=== PATIENT | male | born 2005 | race Caucasian/White ===

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

== ENCOUNTER → 2025-03-08 | Outpatient (CLI) | payer OTHER, SELFPAY ==
--- OUTSIDE RECORDS SUMMARY | 2025-03-08 21:22 | XMS RPT_ITS | CCD ---
Author Organization [facility] ion [facility] Care Team Providers Care Pipe Assembly Worker Name Role Phone Eduardo Kevin Referring Unavailable Eduardo Kevin Attending Unavailable Care Physician, No Primary Primary Care Unava ilable Problems Problem Classification Problem Date Documented Da te Episodic/Chronic Other inflammatory condition of skin (1 source) Psoriasis vulgaris; Translations: [Psoriasis vulgaris] Onset: 03-22-2024 Chronic Results Test Name Value Interpretation Reference Range Facility Quantiferon TB-Gold+on 02-28 QFT MITOGEN NATALIE > 10.00 Normal . [facility] Comment on above: Performed By: #### L 3400.8000 #### [facility] [address] [place], [place], [id number] (693) QFT NIL VALUE 0 IU/mL Normal . [facility] Comment on above: Performed By: #### L 3400.8000 #### [facility] [address] [place], [place], [id number] QFT TB GOLD+ Comment Normal . [facility] Comment on above: Result Comment: [place] tiFERON-TB Gold Plus is a qualitative indirect test for M tuberculosis infection (including disease) and is intended for use in conjunction with risk assessment, radiography, and other medical and diagnostic evaluations. The QuantiFERON-TB Gold Plus result is determined by subtracting the Nil value from either TB antigen (Ag) value. The Mitogen tube serves as a control for the test. Performed By: #### L 3400.8000 #### [facility] [address] [place], [place], [id number] QFT TB POS CRIT Negative Normal Negative [facility] Comment on above: Result Comment: No r esponse to M tuberculosis antigens detected. Infection with M tuberculosis is unlikely, but high risk individuals should be considered for additional testing (ATS/IDSA/CDC Clinical Practice Guidelines, 2017). The reference range is an Antigen minus Nil result of <0.35 IU/mL. The specimen received for QuantiFERON testing was incubated by the ordering institution. Specific procedures outlined in our Directory of Services and in the package insert for the QuantiFERON Gold (In Tube) test must be followed to enable for proper stimulation of cells for the production of interferon gamma. Chemiluminescence immunoassay methodology Performed at: [facility] [id number] Boilerhouse Mechanic: Joselito Chacon PhD, Phone: [phone] Performed By: #### L 3400.8000 #### [facility] [address] [facility] [place], [place], [id number] QFT TB1+ AG NATALIE 0.01 IU/mL Normal . [facility] Comment on above: Performed By: #### L 3400.8000 #### [facility] [address] [place], [address] QFT TB2+ AG NATALIE 0.01 IU/mL Normal . [facility] Comment on above: Performed By: #### L 3400.8000 #### [facility] [address] [facility] [place], [place], [id number] Qualitative QuantiFERON-TB g old in tube testOrdered By: Dr. Kevin on 11-16-2022 M. tuberculosis tuberculin stim IFN-g Ql (Bld) 0 IU/mL . [facility] Thin prep Papanicolaou smear with manual screeningOrdered By: Dr. Kevin on 11-16-2022 Thin prep Papanicolaou smear with manual screening Comment . [facility] Comment on above: QuantiFERON-TB Gold Plus is a qualitative indirect test forM tuberculosis infection (including disease) and isintended for use in conjunction with risk assessment,radiography, and other medical and diagnostic evaluations.The QuantiFERON-TB Gold Plus result is determined bysubtracting the Nil value from either TB antigen (Ag)value. The Mitogen tube serves as a control for the test. Thin prep Papanicolaou smear with manual screening 0 IU/mL . [facility] Thin prep Papanicolaou smear with manual screening > 10.00 IU/mL . [facility] Thin prep Papanicolaou smear with manual screening Negative Negative [facility] Comment on above: No response to M tub erculosis antigens detected.Infection with M tuberculosis is unlikely, but high riskindividuals should be considered for additional testing(ATS/IDSA/CDC Clinical Practice Guidelines, 2017). Thereference range is an Antigen minus Nil result of <0.35IU/mL.The specimen received for QuantiFERON testing was incubatedby the ordering institution. Specific procedures outlinedin our Directory of Services and in the package insert forthe QuantiFERON Gold (In Tube) test must be followed toenable for proper stimulation of cells for the productionof interferon gamma. Chemiluminescence immunoassaymethodologyPerformed at: [facility] [id number] Director: Joselito Chacon PhD, Phone: [phone] Progress Noteon 07-24-2019 Geropsychologist Authentication Interface Message Text Patient ID: Ricci Perez is a 14 y.o. male. His chief complaint(s) include: ED Follow Up Assessment 1. Shoulder strain, left, sequela Plan Ricci was seen today for ed follow up. Diagnoses and all orders for this visit: Shoulder strain, left, sequela - PT Evaluate and Treat; Future No follow-ups on file. Discussed using PT to treat pain and decreased ROM. Discussed anti-inflam Subjective HPI Comments: Was wrestling and bent back. Had a lot of pain initially. Now not hurting much. Not injured before. In ER xray was negative. Hurts with rotation outward. He is accompanied by his mother. ED Follow Up The course is improving. The patient was discharged 2 days ago. The patient was treated at [facility] Diagnosis: shoulder sprain. I have reviewed the discharge summary. Primary Care Review of Systems Objective Vital Signs 07/24/19 1525 Temp: 36.7 C (98 F) TempSrc: Temporal Weight: 56.7 kg There is no height or weight on file to calculate BMI. Physical Exam Constitutional: He appears well. He is active. No distress. HENT: Head: Atraumatic. Right Ear: Tympanic membrane normal. Left Ear: Tympanic membrane normal. Mouth/Throat: Mucous membranes are moist. Eyes: Conjunctivae are normal. Cardiovascular: Normal rate and regular rhythm. Heart murmur not heard. Pulmonary/Chest: Breath sounds normal. There is normal air entry. Musculoskeletal: Left shoulder: He exhibits decreased range of motion and tenderness (along ends of bicep and triceps. no joint pain. deltoid not hurting.). He exhibits no effusion and no crepitus. Arms: Neurological: He is alert. Vitals reviewed: Temperature 36.7 C (98 F), temperature source Temporal, weight 56.7 kg. Normal [facility] XR SHOULDER MINIMUM 2 VIEWS LEFTon 07-22-2019 XR SHOULDER MINIMUM 2 VIEWS LEFT ORIGINAL XR SHOULDER MINIMUM 2 VIEWS LEFT CLINICAL STATEMENT: pain. COMPARISON: None FINDINGS: There are several tiny osseous densities identified at the acromion process. There does not appear to be adjacent soft tissue swelling and this is compatible with apophyseal irregularity. The growth plates are otherwise unremarkable. There is no fracture or dislocation seen. IMPRESSION: No acute finding. Interpreted By: Ronald Jackson MD Preliminary Report By: Ronald Jackson MD Electronically Signed By: Ronald Jackson MD Dictated Date: 07/22/2019 12:29:22 PM Prelim Date: 07/22/2019 12:29:22 PM Sign Date: 07/22/2019 12:30:00 PM Ordering Provider:Sukhjinder Wen [facility] ([place]) Progress Noteon 06-23-2019 Geropsychologist Authentication Interface Message Text Patient ID: Ricci Perez is a 14 y.o. male. His chief complaint(s) include: 14 YEAR WELL CHILD (sports form, ring worm) Assessment 1. Encounter for routine child health examination without abnormal findings 2. Exercise counseling 3. Encounter for dietary counseling and surveillance 4. Need for vaccination 5. Psoriasis 6. Tinea corporis Plan Ricci was seen today for 14 year well child. Diagnoses and all orders for this visit: Encounter for routine child health examination without abnormal findings - Behavioral/Emotional Assessment w Score - PHQ-9 Exercise counseling Encounter for dietary counseling and surveillance Need for vaccination - HPV (Gardasil 9) Psoriasis Tinea corporis Return in about 1 year (around 06/23/2020) for well check. Form filled out for sports and wrestling. Subjective HPI Comments: Injections helping with psoriasis He is accompanied by his stepfather. 14 YEAR WELL CHILD Home: Ricci eats meals with family, has an adult to turn to for help and is permitted and able to make independent decisions. Education: Ricci is in 8th grade and earns A's, earns B's & C's, is doing well and is doing well with homework. Eating: Ricci eats regular meals including fruits and vegetables, eats breakfast, limits fast food, drinks non-sweetened liquids and has a calcium source. Activities & Sports: Ricci has friends, plays team sports (wrestling) and participates in music programs (band). Drugs: Ricci does not use tobacco, does not use drugs, does not use alcohol and does not vape. Safety: Ricci has a violence free home, has peer relationships free from violence and uses seat belt. Sex: The patient has never had a sexual partner. The patient has never had sex. Suicidality: Ricci has no depression, has no anxiety, has no suicidal ideation and has no homicidal ideation. Output Urine and Stool Pattern: Urine and Stool Pattern: Normal stool pattern, normal urine pattern. Stool Consistency: soft Sleep Sleeping Difficulty: no difficulty sleeping Hours of sleep at a time: 9 Teen Anticipatory Guidance The following anticipatory guidance was reviewed during the visit: Nutrition: limit junk food/fast food and soft drinks. Safety: home safety. Social: avoid or limit screen time and bullying. Health: age appropriate dental care, elevated noise and hearing, avoid situations where drugs and alcohol are present, how to resist peer pressure to smoke, drink, use drugs, learn how to say 'no' to sex, identify adult who can give accurate information about sex, talk with trusted adult if feeling sad or nervous, learn about self and strengths and limit sun exposure/use sunscreen. Screenings Previous Vaccine Reactions: No. Life events information was reviewed-no referral needed Hearing Vision Concerns: The caregiver has no concerns about the patient's hearing. The caregiver has no concerns about the patient's vision. Primary Care Review of Systems Objective Vital Signs 06/23/19 1138 BP: 131/63 Pulse: 77 Weight: 55.1 kg Height: 159.2 cm Body mass index is 21.74 kg/m . Physical Exam Constitutional: He appears well. He is active. No distress. HENT: Head: Atraumatic. Right Ear: Tympanic membrane and external ear normal. Left Ear: Tympanic membrane and external ear normal. Nose: Nose normal. Mouth/Throat: Mucous membranes are moist. Dentition is normal. Oropharynx is clear. Eyes: Conjunctivae and EOM are normal. No strabismus. Pupils are equal, round, and reactive to light. Neck: Normal range of motion. Neck supple. Thyroid normal. No neck adenopathy. Cardiovascular: Normal rate, regular rhythm, S1 normal and S2 normal. Pulses are palpable. Heart murmur not heard. Pulmonary/Chest: Breath sounds normal. No respiratory distress. Exhibits no deformity. Abdominal: Soft. Bowel sounds are normal. He exhibits no distension and no mass. There is no hepatosplenomegaly. There is no tenderness. Genitourinary: Testes and penis normal. No inguinal hernia noted. Musculoskeletal: Normal range of motion. Back: He exhibits no scoliosis. Neurological: He is alert. He has normal strength. He exhibits normal muscle tone. Gait normal. Skin: Rash noted. Rash is scaling (almost healed ringworm on 3RD finger L hand and inside L wrist. ). There is no pallor. Skin is warm. Vitals reviewed: Blood pressure 131/63, pulse 77, height 159.2 cm, weight 55.1 kg. Ricci Perez is a 14 y.o. male patient. Behavioral/Emotional Assessment w Score - PHQ-9 Performed by: Cassia Gardner MD Authorized by: Cassia Gardner MD PHQ-9 See PHQ9 Flowsheet Feeling down, depressed, irritable or hopeless: Not at all Little interest or pleasure in doing things: Several days Trouble falling or staying sleep, or sleeping too much: Not at all Poor appetite, weight loss, or overeating: Not at all Feeling tired or having little energy: Several days Feeling bad about yourself - or feeling that you are a failure, or have let yourself or your family down: Not at all Trouble concentrating on things, like school work, reading or watching TV: Several days Moving or speaking so slowly that other people could have noticed. Or the opposite - being so fidgety or restless that you were moving around a lot more than usual: Not at all Thoughts that you would be better off , or of hurting yourself in some way: Not at all In the past year have you felt depressed or sad most days, even if you felt OK sometimes?: No If you are experiencing any of the problems on this form, how difficult have these problems made it for you to do your work, take care of things at home or get along with other people?: Not difficult at all Has there been a time in the past month when you have had serious thoughts about ending your life?: No Have you ever, in your whole life, tried to kill yourself or made a suicide attempt?: No PHQ-9 Total Score: 3 Total Score Value: 0-4 No or Minimal Electronically signed by: Cassia Martinez MD [facility] Progress Noteon 06-02-2019 Geropsychologist Authentication Interface Message Text Patient ID: Ricci Perez is a 14 y.o. male. His chief complaint(s) include: Tinea Assessment 1. Tinea corporis 2. Contact dermatitis and eczema Plan Ricci was seen today for tinea. Diagnoses and all orders for this visit: Tinea corporis - ketoconazole (NIZORAL) 2 % CREA cream; Apply thin film to affected area daily. Contact dermatitis and eczema - triamcinolone (KENALOG) 0.1 % cream; Apply to affected area 2 times daily for 7 days Return if symptoms worsen or fail to improve. Subjective HPI Comments: Ringworm on finger and neck He is accompanied by his mother. Tinea This problem is new. The onset has been acute. The location of symptoms have included the hand(s) and neck. There have been no previous interventions. Primary Care Review of Systems Objective Vital Signs 06/02/19 0859 Temp: 36.9 C (98.5 F) TempSrc: Temporal Weight: 55.7 kg There is no height or weight on file to calculate BMI. Physical Exam Nursing note reviewed. Constitutional: He appears well. He is active. No distress. HENT: Head: Atraumatic. Right Ear: Tympanic membrane normal. Left Ear: Tympanic membrane normal. Mouth/Throat: Mucous membranes are moist. Eyes: Conjunctivae are normal. Cardiovascular: Normal rate and regular rhythm. Heart murmur not heard. Pulmonary/Chest: Breath sounds normal. There is normal air entry. Neurological: He is alert. Skin: Lesion noted. Ringworm on finger and neck Vitals reviewed: Temperature 36.9 C (98.5 F), temperature source Temporal, weight 55.7 kg. Normal [facility] Progress Noteon 01-09-2019 Geropsychologist Authentication Interface Message Text Patient ID: Ricci Perez is a 13 y.o. male. His chief complaint(s) include: Rash Assessment 1. Psoriasis Plan Ricci was seen today for rash. Diagnoses and all orders for this visit: Psoriasis - AMB Referral To Dermatology; Future Return if symptoms worsen or fail to improve. Referred to dermatology for further evaluation since psoriasis is worsening on current topical regimen. Will continue with the fluocinolone oil and elecon cream until seen by derm. Mom to call derm today to make an appointment. Subjective HPI Comments: Psoriasis is getting worse. A lot worse over the past 1.5 weeks. Getting areas on his stomach, arms, legs, on his head. Starting to itch. Not painful. Getting big scaly plaques on his head. Using elecon cream and synalar oil. Helping some but not enough. He is accompanied by his mother. Rash The course is worsening. The rash is located on the leg(s), abdomen, back, arm(s) and scalp. The rash is described as red, bumpy, scaly and itchy. The patient has no fatigue, no fever, no fussiness, no difficulty sleeping, no cough, no shortness of breath, no difficulty breathing, no vomiting and no diarrhea. Review of Systems Skin: Positive for rash. Objective Vital Signs 01/09/19 1359 Temp: 37.3 C (99.1 F) TempSrc: Temporal Weight: 51.4 kg There is no height or weight on file to calculate BMI. Physical Exam Constitutional: He appears well. He is active. No distress. HENT: Head: Atraumatic. Nose: No nasal discharge. Mouth/Throat: Mucous membranes are moist. Neck: Normal range of motion. Neck supple. Cardiovascular: Normal rate and regular rhythm. Pulses are strong. Heart murmur not heard. Pulmonary/Chest: Effort normal and breath sounds normal. No respiratory distress. He has no wheezes. He has no rhonchi. He has no rales. Musculoskeletal: No pain, swelling, or limited range of motion at any joint. Neurological: He is alert. Skin: Capillary refill takes less than 3 seconds. Rash (multiple small erythematous lesions with scaling on extremities, back, and abdomen. Large scaly plaques on scalp) noted. Skin is warm. Normal [facility] Progress Noteon 11-22-2018 Geropsychologist Authentication Interface Message Text Patient ID: Ricci Perez is a 13 y.o. male. His chief complaint(s) include: Cold Symptoms (chest and back pain while coughing and moving alot) Assessment 1. Seasonal allergies 2. Viral URI Plan Ricci was seen today for cold symptoms. Diagnoses and all orders for this visit: Seasonal allergies Viral URI Return if symptoms worsen or fail to improve. Symptoms could be due to seasonal allergies vs viral. Will trial treatment with claritin to see if improvement; mom will get OTC. Chest and back pain with cough is likely muscle soreness from frequent coughing- recommended heat, ibuprofen. Will follow up if back or chest pain worsens or does not improve. If cough, congestion, rhinorrhea worsen or don't improve with claritin, will consider treatment for sinusitis as symptoms have been present >1 week. Subjective HPI Comments: 4 days of chest pain with cough. This morning started with back pain with the cough as well. Has had cough for >1 week. Cough is getting better, worse in the mornings then better throughout the day. Congestion, a little runny nose. No itchy eyes. No fevers. He is accompanied by his mother. Cold Symptoms The patient's symptoms have included congestion, rhinorrhea and cough. The patient's symptoms have included no fever, no decreased appetite, no decreased fluid intake, no difficulty sleeping, no eye discharge, no eye redness, no shortness of breath, no difficulty breathing, no wheezing, no bilateral ear pain, no vomiting, no diarrhea, no decreased urination and no rash. Primary Care Review of Systems Objective Vital Signs 11/22/18 1603 BP: 115/70 Pulse: 86 Temp: 37.2 C (98.9 F) TempSrc: Temporal Weight: 49 kg There is no height or weight on file to calculate BMI. Physical Exam Constitutional: He appears well. He is active. No distress. HENT: Head: Atraumatic. Right Ear: Tympanic membrane and external ear normal. Serous effusion is present. Left Ear: Tympanic membrane and external ear normal. A serous effusion is present. Nose: Nasal discharge (congestion, clear rhinorrhea) present. Mouth/Throat: Mucous membranes are moist. Pharynx erythema (mild with post nasal drip) present. Eyes: Conjunctivae are normal. Right eyelid exhibits allergic shiners. Right eyelid exhibits no discharge. Left eyelid exhibits allergic shiners. Left eyelid exhibits no discharge. Right conjunctiva is not injected. Left conjunctiva is not injected. Neck: Normal range of motion. Neck supple. Cardiovascular: Normal rate and regular rhythm. Pulses are strong. Heart murmur not heard. Pulmonary/Chest: Breath sounds normal. There is normal air entry. No respiratory distress. He has no wheezes. He has no rhonchi. He has no rales. Abdominal: Soft. There is no tenderness. Musculoskeletal: No pain, swelling, or limited range of motion at any joint. He exhibits no tenderness. No back or chest tenderness on exam Neurological: He is alert. He exhibits normal muscle tone. Gait normal. Skin: Capillary refill takes less than 3 seconds. No rash noted. No pallor. Skin is warm. Normal [facility] Progress Noteon 10-03-2018 Geropsychologist Authentication Interface Message Text Patient ID: Ricci Perez is a 13 y.o. male. His chief complaint(s) include: Skin Problem Assessment 1. Psoriasis 2. Need for vaccination Plan Ricci was seen today for skin problem. Diagnoses and all orders for this visit: Psoriasis - fluocinolone (SYNALAR) 0.01 % external solution; Apply to affected area 2 times daily for 7 days Apply thin film to affected areas on scalp - mometasone (ELOCON) 0.1 % cream; Apply to affected area daily for 7 days Apply thin film to affected areas. Need for vaccination - HPV (Gardasil 9) No follow-ups on file. Discussed importance of watching response. If still struggling, will refer to derm. Subjective HPI Comments: tgel and cortisone cream. He is accompanied by his mother and sibling(s). Skin Problem The onset has been gradual. (Months). The course is gradually worsening. The rash is located on the scalp, ear(s) and face. The rash is described as red and scaly. Symptoms are relieved by topical corticosteriods. The patient has no fatigue, no fever, no ear pain, no vomiting and no diarrhea. The patient has been exposed to no sick contacts at home . Primary Care Review of Systems Objective Vital Signs 10/03/18 1046 Temp: 36.8 C (98.3 F) TempSrc: Temporal Weight: 47.9 kg There is no height or weight on file to calculate BMI. Physical Exam Constitutional: He appears well. He is active. No distress. HENT: Head: Atraumatic. Right Ear: Tympanic membrane normal. Left Ear: Tympanic membrane normal. Mouth/Throat: Mucous membranes are moist. Eyes: Conjunctivae are normal. Cardiovascular: Normal rate and regular rhythm. Heart murmur not heard. Pulmonary/Chest: Breath sounds normal. There is normal air entry. Neurological: He is alert. Skin: Rash noted. Rash is scaling (patches in scalp, cheeks, under eyes, upper back). Vitals reviewed: Temperature 36.8 C (98.3 F), temperature source Temporal, weight 47.9 kg. Normal [facility] Encounters Encounter Date Encounter Type Care Provider Facility Start: 02-25-2024 End: 02-25-2024 ambulatory [facility] Facility:[facility] Start: 11-16-2022 End: 11-16-2022 ambulatory [facility] Work Phone: Start: 11-16-2022 End: 11-16-2022 Patient encounter procedure [facility] [place] Payers Date Payer Category Payer Self-pay [id number] 2024 Unknown [id number] Unknown [facility] [employer] [facility] [id number] Unknown [id number] Social History Date Type Detail Facility Start: 08-04-2013 Tobacco smoking stat [facility] Unknown if ever smoked [facility] Start: 2005 Sex Assigned At Male [facility] Evaluation note Note Date & Type Note Facility Evaluation note No assessment information availa ble [facility] Work Phone: Summary Purpose Family History No Family History Records FoundNo Family History Records FoundNo Family History Records Found Advance Directives No Advanced Directives Records FoundNo Advanced Directives Records FoundNo Advanced Directives Records Found Chief Complaint and Reason for Visit Chief Complaint SKIN Additional Source Comments (unrecognized sect ion and content) No Status Records FoundNo Status Records FoundNo Status Records Found INFORMATION SOURCE (unrecogn ized section and content) DATE CREATED AUTHOR 07/28/2019 [facility] DATE CREATED AUTHOR AUTHOR'S ORGANIZ ATION 06/08/2020 [facility] [place] [facility] DATE CREATED AUTHOR AUTHOR'S ORGANIZ ATION 03/23/2024 [facility] Care Teams (unrecognized sec tion and content) Team Status: Active Member Role Status Dates Dr. Cassia Katz MD Family Provider Active No Primary Care Physician Primary Care Provider Active Team Status: Inactive Member Role Status Dates No Primary Care Physician Primary Care Provider Active Dr. Eduardo Kevin MD Attending Provider, Referring P blanca Active Goals (unrecognized section and content) Goals may be documented in a n alternate section FOR RECORDS PERTAINING TO PATIENTS WHO ARE OR HAVE BEEN ENROLLED IN A CHEMICAL DEPENDENCY/SUBSTANCEABUSE PROGRAM, SOME INFORMATION MAY BE OMITTED. This clinical summary was aggregated from multiple sources. Caution should be exercised in using it in the provision of clinical care. This summary normalizes information from multiple sources, and as a consequence, information in this document may materially change the coding, format and clinical context of patient data. In addition, data may be omitted in some cases. CLINICAL DECISIONS SHOULD BE BASED ON THE PRIMARY CLINICAL RECORDS. [facility]. provides no warranty or guarantee of the accuracy or completeness of information in this document.
[2025-03-10 08:09] LABS: QNTFERON TB Mitogen Value > 10.00 IU/mL (.); QNTFERON TB Nil Value 0.01 IU/mL (.); QNTFERON TB1+ Ag Value 0.01 IU/mL (.); QNTFERON TB2+ Ag Value 0.03 IU/mL (.); QNTIFERON TB Positive Criteria Negative (Negative)
== END | disposition home or self-care (01) ==
LOC: MTLAB 15:19
PROVIDERS: Referring Provider Dermatology; Visit Provider Dermatology
DX: L40.0 Psoriasis vulgaris (principal)
CPT/HCPCS: 36415; 86480